=== PATIENT | female | born 1980 | race Caucasian/White ===

== ENCOUNTER → 2019-01-31 | Outpatient (CLI) | payer BC ==
[~2019-01-31] MED LIST: PRENATAL1 TA1 PO
== END ==
LOC: MC.RAD 14:07
DX: N60.02 Solitary cyst of left breast (principal)

== ENCOUNTER → 2021-01-09 | Outpatient (CLI) | payer BC | LOC: MC.RAD 09:45 | DX: Z12.31 Encounter for screening mammogram for malignant neoplasm of breast (principal) ==

== ENCOUNTER → 2022-01-10 | Outpatient (CLI) | payer BC | LOC: MC.RAD 09:22 | DX: Z12.31 Encounter for screening mammogram for malignant neoplasm of breast (principal) ==

== ENCOUNTER → 2022-02-05 | Outpatient (CLI) | payer BC | LOC: MC.RAD 13:00 | DX: N60.02 Solitary cyst of left breast (principal) ==